=== PATIENT | male | born 1990 | race American Indian/Alaskan Native ===

== ENCOUNTER 2017-11-13 20:16 | Emergency (ER) | payer OTHER ==
[2017-11-13 20:24] VITALS: BP 106/72
--- NOTE | 2017-11-14 03:47 | Emergency Department Report ---
ED Extremity Problem HPI - General Chief complaint: Skin/Abscess/Foreign Body Stated complaint: BOIL ON UNDERARM Time Seen by Provider: 11/14/17 03:37 Source: patient Mode of arrival: Ambulatory Limitations: No Limitations - History of Present Illness MD Complaint: extremity pain, extremity swelling - Related Data Allergies Allergy/AdvReac Type Severity Reaction Status Date / Time No Known Allergies Allergy Unverified 11/13/17 20:24 ED Review of Systems ROS: Stated complaint: BOIL ON UNDERARM Other details as noted in HPI ED Past Medical Hx - Past Medical History Previous Medical History?: No - Surgical History Past Surgical History?: No - Social History Smoking Status: Never Smoker Substance Use Type: None ED Physical Exam - General Limitations: No Limitations ED Course Vital Signs 11/13/17 20:20 Temperature 98.1 F Pulse Rate 56 L Respiratory 18 Rate Blood Pressure 106/72 O2 Sat by Pulse 100 Oximetry Critical care attestation.: If time is entered above; I have spent that time in minutes in the direct care of this critically ill patient, excluding procedure time. ED Disposition Condition: Stable Referrals: PRIMARY CARE [Primary Care Provider] - 3-5 Days
== END 2017-11-13 23:40 | disposition left against medical advice (07) ==
LOC: ED 20:16
DX: L02.421 Furuncle of right axilla (principal); Z53.21 Procedure and treatment not carried out due to patient leaving prior to being seen by health care provider

== ENCOUNTER 2018-10-28 17:55 | Emergency (ER) | payer OTHER ==
[2018-10-28] MEDS ORDERED: SUBLIMAZE ONE ×2 (18:03→18:05)
[2018-10-28] MEDS ORDERED: SUBLIMAZE IV ONE ×3 (18:08→19:35)
[2018-10-28] MEDS ORDERED: AMIDATE IV ONE ×3 (18:31→19:37)
--- NOTE | 2018-10-28 18:43 | XRay Report ---
RIGHT SHOULDER SINGLE VIEW INDICATION / CLINICAL INFORMATION: pain, dislocation. COMPARISON: None available. FINDINGS: Humeral head is displaced inferiorly to the glenoid consistent with anterior dislocation. An obvious fracture is not identified on this single view. Visualized right ribs are intact. IMPRESSION: Anterior dislocation of the glenohumeral joint. Signer Name: Kia Hwang MD Signed: 10/28/2018 6:39 PM Workstation Name: [id number]
[2018-10-28] MEDS ORDERED: NARCAN 2 MG/2 ML ONE (18:49)
--- NOTE | 2018-10-28 18:56 | Emergency Department Report ---
ED Extremity Problem HPI - General Chief complaint: Extremity Injury, Upper Stated complaint: RT ARM/PAIN Time Seen by Provider: 10/28/18 18:06 Source: patient Mode of arrival: Wheelchair Limitations: Physical Limitation - History of Present Illness Initial comments: 78-year-old male with recurrent dislocation of the shoulder. He was doing some sort of tumbling and his shoulder popped out. He states this happens frequently but he is able to pop it back in. He has not followed up with an orthopedist or had any procedure on his shoulder. He states that he ate pizza approximately 6 hours ago. He is not being very cooperative and a poor historian. However, he reports no other injury. MD Complaint: extremity pain -: Sudden Location: right (shoulder) History of Same: Yes Radiation: none Quality: aching Consistency: constant Improves with: nothing Worsens with: nothing Associated Symptoms: denies other symptoms - Related Data Previous Rx's Medication Instructions Recorded Last Taken Type Naproxen [Naprosyn] 500 mg PO Q12H PRN #14 tablet 10/28/18 Unknown Rx Allergies Allergy/AdvReac Type Severity Reaction Status Date / Time No Known Allergies Allergy Unverified 11/13/17 20:24 ED Review of Systems ROS: Stated complaint: RT ARM/PAIN Other details as noted in HPI Comment: All other systems reviewed and negative ED Past Medical Hx - Past Medical History Previous Medical History?: No Additional medical history: Recurrent shoulder dislocation - Surgical History Past Surgical History?: No - Social History Smoking Status: Never Smoker Substance Use Type: None - Medications Home Medications: Home Medications Medication Instructions Recorded Confirmed Last Taken Type Naproxen [Naprosyn] 500 mg PO Q12H PRN #14 tablet 10/28/18 Unknown Rx ED Physical Exam - General Limitations: Physical Limitation General appearance: alert, in no apparent distress - Head Head exam: Present: atraumatic, normocephalic - Eye Eye exam: Present: normal appearance. Absent: scleral icterus - ENT ENT exam: Present: mucous membranes moist - Neck Neck exam: Present: normal inspection - Respiratory Respiratory exam: Present: normal lung sounds bilaterally. Absent: respiratory distress - Cardiovascular Cardiovascular Exam: Present: regular rate, normal rhythm. Absent: systolic murmur, diastolic murmur, rubs, gallop - GI/Abdominal GI/Abdominal exam: Present: soft, normal bowel sounds. Absent: distended, tenderness, guarding, rebound, rigid - Rectal Rectal exam: Present: deferred - Extremities Exam Extremities exam: Present: normal inspection - Back Exam Back exam: Present: normal inspection - Neurological Exam Neurological exam: Present: alert, oriented X3, CN II-XII intact. Absent: motor sensory deficit - Psychiatric Psychiatric exam: Present: agitated, anxious - Skin Skin exam: Present: warm, dry, intact, normal color. Absent: rash ED Course Vital Signs 10/28/18 10/28/18 18:30 19:07 Temperature 98.9 F Temperature [ 98.9 F Pre-Procedure] Pulse Rate 51 L 47 L Pulse Rate [Pre 58 L -Procedure] Respiratory 14 3 L Rate Respiratory 16 Rate [Pre- Procedure] Blood Pressure 121/82 O2 Sat by Pulse 99 Oximetry O2 Sat by Pulse 100 Oximetry [Pre- Procedure] - Reevaluation(s) Reevaluation #1: She has recovered to his baseline. He is appropriate for outpatient disposition. 10/28/18 19:26 - Moderate Sedation Indications: fracture/dislocation redu ASA Class: I Mallampati Airway Score: 1 Preparation: reverberatory furnace supervisor applied, pulse oximeter, capnometry used, supplemental O2 applied, reversal agents at bedside, suction/airway equipment at bedside, IV secured Fentanyl: IV IV Etomidate Dose (mgs): 6 Reversal Agents Used: Naloxone (1 mg) Complications: other Interventions: assist by BVM Patient Tolerated Procedure: well Additional Comments: BVM assist. Patient given a milligram of Narcan. He woke well. He was conscious and alert. He will be observed for complete recovery.. Critical care attestation.: If time is entered above; I have spent that time in minutes in the direct care of this critically ill patient, excluding procedure time. ED Disposition Clinical Impression: Anterior dislocation of right shoulder Qualifiers: Encounter type: initial encounter Qualified Code(s): S43.014A - Anterior dislocation of right humerus, initial encounter Disposition: TO HOME OR SELFCARE Is pt being admited?: No Does the pt Need Aspirin: No Condition: Stable Instructions: Shoulder Dislocation (ED) Additional Instructions: Where shoulder. Avoid excessive stress. Follow-up with orthopedist list. Ibuprofen for pain as needed. Prescriptions: Naproxen [Naprosyn] 500 mg PO Q12H PRN #14 tablet PRN Reason: pain Referrals: ALLY HERRON MD [Staff Physician] - 3-5 Days Time of Disposition: 19:13
[2018-10-28] MEDS ORDERED: NARCAN 0.4 MG/1 ML IV ONE (18:57)
[2018-10-28] MEDS ORDERED: IBUPROFEN PO ONE (19:28)
--- NOTE | 2018-10-28 19:35 | XRay Report ---
Right shoulder, 2 views INDICATION: Postreduction FINDINGS: When compared to the prereduction film there has been successful reduction of the dislocate d right shoulder with the humeral head now in normal position within the glenoid fossa. Signer Name: José Miguel Ball MD Signed: 10/28/2018 7:30 PM Workstation Name: [id number]
[2018-10-28 21:05] VITALS: BP 110/78
== END 2018-10-28 21:07 | disposition home or self-care (01) ==
LOC: ED 17:55
DX: S43.014A Anterior dislocation of right humerus, initial encounter (principal); Z79.899 Other long term (current) drug therapy; W18.39XA Other fall on same level, initial encounter; Y93.89 Activity, other specified; Y92.89 Other specified places as the place of occurrence of the external cause; Y99.8 Other external cause status
CPT/HCPCS: 23650; 73020; 73030; 99285; J2310; J3010; 96374; 96376

== ENCOUNTER 2019-01-13 06:26 | Emergency (ER) | payer SELFPAY ==
[2019-01-13] MEDS ORDERED: ETOMIDATE 20 MG/10 ML INJ IV ONE ×2 (07:16→07:37)
--- NOTE | 2019-01-13 07:19 | Emergency Department Report ---
HPI - General Chief Complaint: Shoulder Injury Time Seen by Provider: 01/13/19 07:11 - HPI HPI: Room 18 The patient is a 28-year-old male presented with a chief complaint of right shoulder pain. Patient has a history of multiple dislocations of the right shoulder. The patient states he awakened this morning with pain in the right shoulder secondary to dislocation. Patient denies any preceding trauma. ED Past Medical Hx - Past Medical History Previous Medical History?: Yes Additional medical history: Recurrent shoulder dislocation - Surgical History Past Surgical History?: No - Family History Family history: no significant - Social History Smoking Status: Never Smoker Substance Use Type: None (denies illicit drug use), Alcohol (rarely) - Medications Home Medications: Home Medications Medication Instructions Recorded Confirmed Last Taken Type Naproxen [Naprosyn] 500 mg PO Q12H PRN #14 tablet 10/28/18 Unknown Rx HYDROcodone/APAP 5-325 [[place] 1 - 2 each PO Q6HR PRN #14 tablet 01/13/19 Unknown Rx 5/325] Ibuprofen [Motrin 800 MG tab] 800 mg PO Q8HR PRN #20 tablet 01/13/19 Unknown Rx ED Review of Systems ROS: Stated complaint: RT DISLOCATED SHOULDER Other details as noted in HPI Constitutional: no symptoms reported Eyes: denies: eye pain ENT: denies: throat pain Respiratory: no symptoms reported Cardiovascular: denies: chest pain Endocrine: no symptoms reported Gastrointestinal: denies: abdominal pain Genitourinary: denies: dysuria Musculoskeletal: arthralgia Neurological: denies: headache Physical Exam - Physical Exam Vital Signs: Vital Signs 01/13/19 06:50 Temperature 98.6 F Pulse Rate 54 L Respiratory 20 Rate Blood Pressure 119/83 [Left] O2 Sat by Pulse 98 Oximetry Physical Exam: GENERAL: The patient is well-developed well-nourished male lying on stretcher with right upper extremity abducted. [] HEENT: Normocephalic. Atraumatic. Extraocular motions are intact. Patient has moist mucous membranes. NECK: Supple. Trachea midline CHEST/LUNGS: There is no respiratory distress noted. HEART/CARDIOVASCULAR: Regular. There is no tachycardia. 2+ right radial pulse ABDOMEN: There is no abdominal distention. SKIN: There is no rash. There is no edema. There is no diaphoresis. NEURO: The patient is awake, alert, and oriented. The patient is cooperative. The patient has no focal neurologic deficits. The patient has normal speech MUSCULOSKELETAL: The right upper extremity is held in abduction secondary to dislocation at the shoulder ED Course Vital Signs 01/13/19 06:50 Temperature 98.6 F Pulse Rate 54 L Respiratory 20 Rate Blood Pressure 119/83 [Left] O2 Sat by Pulse 98 Oximetry - Moderate Sedation ASA Class: I Mallampati Airway Score: 1 Preparation: manufacturing weaver applied, pulse oximeter, supplemental O2 applied, suction/airway equipment at bedside, IV secured IV Etomidate Dose (mgs): 12 Complications: none Patient Tolerated Procedure: no complications - Orthopedic Joint Reduction Joint #1 Consent Obtained: verbal consent Time Out Performed: Yes Side: right Joint Reduction Location: shoulder Analgesia: moderate sedation Shoulder Technique Used (if applicable): traction/counter-traction Technique Used: traction/counter-traction Post-Reduction Neuro Exam: intact Post-Reduction Vascular Exam: intact Post Reduction X-Ray Obtained: Yes Post Reduction X-Ray Results: reduced Splint Applied: Yes Patient Tolerated Procedure: well ED Medical Decision Making - Radiology Data Radiology results: report reviewed (x-ray #1), image reviewed (shoulder x-ray #1, shoulder x-ray #2) interpreted by me: Shoulder x-ray #1-dislocation X-ray #2 (post reduction)-anatomic. No fractures, no dislocation [address] [address] XRay Report Signed Patient: SANTIAGO KRAUS MR #: [id number] : 1990 Acct:[id number] Age/Sex: 28 / M ADM Date: 01/13/19 Loc: ED Attending Dr: Ordering Physician: JULIA CARSON MD Date of Service: 01/13/19 Procedure(s): XR shoulder 1V RT Accession Number(s): [id number] cc: JULIA CARSON MD Fluoro Time In Minutes: XR RIGHT SHOULDER ONE VIEW INDICATION / CLINICAL INFORMATION: shoulder dislocation COMPARISON: Right shoulder radiographs 10/28/2018 FINDINGS: BONES / JOINT(S): Evaluation is slightly suboptimal with only one view. The glenohumeral joint appears appropriately aligned on this view. There is suggestion of a probable Hill-Sachs deformity of the humeral head. SOFT TISSUES: No significant abnormality. ADDITIONAL FINDINGS: None. Signer Name: Stacy Allen MD Signed: 01/13/2019 7:53 AM Workstation Name: [id number] Transcribed By: C Dictated By: Stacy Allen MD Electronically Authenticated By: Stacy Allen MD Signed Date/Time: 01/13/19 0753 DD/ 0748 TD/TT: - Differential Diagnosis shoulder dislocation Critical care attestation.: If time is entered above; I have spent that time in minutes in the direct care of this critically ill patient, excluding procedure time. ED Disposition Clinical Impression: Recurrent dislocation, right shoulder Disposition: DC-01 TO HOME OR SELFCARE Is pt being admited?: No Does the pt Need Aspirin: No Condition: Stable Instructions: Shoulder Dislocation (ED) Prescriptions: Ibuprofen [Motrin 800 MG tab] 800 mg PO Q8HR PRN #20 tablet PRN Reason: Pain, Moderate (4-6) HYDROcodone/APAP 5-325 [[place] 5/325] 1 - 2 each PO Q6HR PRN #14 tablet PRN Reason: Pain Referrals: ALLY BLANCHARD MD [Staff Physician] - [place] (Dr. Blanchard is an orthopedic surgeon. Please follow up with him for further evaluation) Time of Disposition: 08:26
--- NOTE | 2019-01-13 07:57 | XRay Report ---
XR RIGHT SHOULDER ONE VIEW INDICATION / CLINICAL INFORMATION: shoulder dislocation COMPARISON: Right shoulder radiographs 10/28/2018 FINDINGS: BONES / JOINT(S): Evaluation is slightly suboptimal with only one view. The glenohumeral joint appear s appropriately aligned on this view. There is suggestion of a probable Hill-Sachs deformity of the h umeral head. SOFT TISSUES: No significant abnormality. ADDITIONAL FINDINGS: None. Signer Name: Stacy Allen MD Signed: 01/13/2019 7:53 AM Workstation Name: [id number]
--- NOTE | 2019-01-13 08:46 | XRay Report ---
RIGHT SHOULDER 1 VIEW(S) INDICATION / CLINICAL INFORMATION: s/p reduction COMPARISON: This study at 8:02 AM was compared to earlier study at 7:21 AM same day. FINDINGS: BONES / JOINT(S): No acute fracture or subluxation. No significant arthritis. SOFT TISSUES: No significant abnormality. ADDITIONAL FINDINGS: None. Signer Name: Pito Leonard MD Signed: 01/13/2019 8:42 AM Workstation Name: [id number]
[2019-01-13 08:49] VITALS: BP 102/66
== END 2019-01-13 09:10 | disposition home or self-care (01) ==
LOC: ED 06:26
DX: M24.411 Recurrent dislocation, right shoulder (principal)
CPT/HCPCS: 96374

== ENCOUNTER 2019-05-30 12:07 | Emergency (ER) | payer SELFPAY ==
--- NOTE | 2019-05-30 12:13 | Emergency Department Report ---
{null, Blank Doc - Documentation Documentation: 28-year-old male that presents with right shoulder pain w/ possible dislocation s/p fall. This initial assessment/diagnostic orders/clinical plan/treatment(s) is/are subject to change based on patient's health status, clinical progression and re- assessment by fellow clinical providers in the ED. Further treatment and workup at subsequent clinical providers discretion. Patient/guardians urged not to elope from the ED as their condition may be serious if not clinically assessed and managed. Initial orders include: 1- Patient sent to MAIN ED for further evaluation and treatment 2- xrays }
[2019-05-30] MEDS ORDERED: propofoL 200 MG/20 ML VIAL IV ONE (12:33)
[2019-05-30] MEDS ORDERED: fentaNYL 100 MCG/2 ML INJ IV ONE (12:34)
--- NOTE | 2019-05-30 13:07 | XRay Report ---
{null, RIGHT SHOULDER 2 VIEWS INDICATION: shoulder pain. COMPARISON: 01/13/2019 FINDINGS: There is anterior/inferior subluxation of the humeral head with respect to the glenoid. No fracture i s seen. AC joint is unremarkable. IMPRESSION: 1. Positioning is suboptimal; there appears to be anterior inferior subluxation of the humeral head w ith respect to the glenoid. Signer Name: Iain Jacobo MD Signed: 05/30/2019 1:03 PM Workstation Name: [id number] }
--- NOTE | 2019-05-30 13:15 | Emergency Department Report ---
{null, ED General Adult HPI - General Chief complaint: Shoulder Injury Stated complaint: POSS RT SHOULDER DISLOC Time Seen by Provider: 05/30/19 12:14 Source: patient Mode of arrival: Wheelchair Limitations: No Limitations - History of Present Illness Initial comments: This is a 28-year-old male who states he has had 4-5 dislocations of his right shoulder in the past. He states that he is unable to get it fixed due to a lack of insurance. He states that he slipped and dislocated his right shoulder which is quite painful. He was here in January 2019 for shoulder dislocation. He states that his right trapezius area is sore but not his actual neck. He did not hit his head. He denies other pain or injury. Last meal was last night. No prior problems with sedation or anesthesia. -: Sudden Location: right, upper extremity (Shoulder) Radiation: non-radiation Quality: aching Consistency: constant Improves with: none Worsens with: movement Associated Symptoms: denies other symptoms - Related Data Previous Rx's Medication Instructions Recorded Last Taken Type Naproxen [Naprosyn] 500 mg PO Q12H PRN #14 tablet 10/28/18 Unknown Rx HYDROcodone/APAP 5-325 [[place] 1 - 2 each PO Q6HR PRN #14 tablet 01/13/19 Unknown Rx 5/325] Ibuprofen [Motrin 800 MG tab] 800 mg PO Q8HR PRN #20 tablet 01/13/19 Unknown Rx HYDROcodone/APAP 5-325 [[place] 1 each PO Q6HR PRN #7 tablet 05/30/19 Unknown Rx 5/325] Allergies Allergy/AdvReac Type Severity Reaction Status Date / Time No Known Allergies Allergy Unverified 11/13/17 20:24 ED Review of Systems ROS: Stated complaint: POSS RT SHOULDER DISLOC Other details as noted in HPI Comment: All other systems reviewed and negative ED Past Medical Hx - Past Medical History Previous Medical History?: Yes Additional medical history: Recurrent shoulder dislocation - Surgical History Past Surgical History?: No - Social History Smoking Status: Never Smoker Substance Use Type: Alcohol - Medications Home Medications: Home Medications Medication Instructions Recorded Confirmed Last Taken Type Naproxen [Naprosyn] 500 mg PO Q12H PRN #14 tablet 10/28/18 Unknown Rx HYDROcodone/APAP 5-325 [[place] 1 - 2 each PO Q6HR PRN #14 tablet 01/13/19 Unknown Rx 5/325] Ibuprofen [Motrin 800 MG tab] 800 mg PO Q8HR PRN #20 tablet 01/13/19 Unknown Rx HYDROcodone/APAP 5-325 [[place] 1 each PO Q6HR PRN #7 tablet 05/30/19 Unknown Rx 5/325] ED Physical Exam - General Limitations: No Limitations ED Course Vital Signs 05/30/19 05/30/19 05/30/19 12:13 12:43 13:16 Temperature 97.6 F Pulse Rate 64 Pulse Rate [ 61 Post-Procedure] Pulse Rate [Pre 67 -Procedure] Respiratory 20 20 Rate Respiratory 7 L Rate [Post- Procedure] Respiratory 16 Rate [Pre- Procedure] Blood Pressure 108/71 Blood Pressure 126/73 [Post-Procedure ] Blood Pressure 123/80 [Pre-Procedure] Blood Pressure [Right] O2 Sat by Pulse 98 Oximetry O2 Sat by Pulse 98 Oximetry [Post -Procedure] O2 Sat by Pulse 98 Oximetry [Pre- Procedure] 05/30/19 05/30/19 13:36 13:55 Temperature Pulse Rate 65 56 L Pulse Rate [ Post-Procedure] Pulse Rate [Pre -Procedure] Respiratory 10 L 16 Rate Respiratory Rate [Post- Procedure] Respiratory Rate [Pre- Procedure] Blood Pressure Blood Pressure [Post-Procedure ] Blood Pressure [Pre-Procedure] Blood Pressure 120/73 [Right] O2 Sat by Pulse 100 Oximetry O2 Sat by Pulse Oximetry [Post -Procedure] O2 Sat by Pulse Oximetry [Pre- Procedure] - Moderate Sedation Indications: fracture/dislocation redu ASA Class: I Mallampati Airway Score: 1 Preparation: import/export specialist applied, pulse oximeter, capnometry used, supplemental O2 applied, reversal agents at bedside, suction/airway equipment at bedside, IV secured Fentanyl: IV IV Propofol Dose (mgs): 120 (Titrated) Complications: none Interventions: oxygen applied Patient Tolerated Procedure: well (Patient did require quite a bit of propofol to achieve reduction. He did not require Ambu bag assist.) - Orthopedic Joint Reduction Joint #1 Consent Obtained: verbal consent Time Out Performed: No Side: right Joint Reduction Location: shoulder Analgesia: moderate sedation Shoulder Technique Used (if applicable): other (Modified Lucho Technique) Post-Reduction Neuro Exam: intact Post-Reduction Vascular Exam: intact Post Reduction X-Ray Obtained: Yes Post Reduction X-Ray Results: reduced Splint Applied: Yes Patient Tolerated Procedure: well ED Medical Decision Making - Radiology Data Radiology results: image reviewed Critical care attestation.: If time is entered above; I have spent that time in minutes in the direct care of this critically ill patient, excluding procedure time. ED Disposition Clinical Impression: Recurrent dislocation, right shoulder Disposition: DC-01 TO HOME OR SELFCARE Is pt being admited?: No Does the pt Need Aspirin: No Condition: Stable Instructions: Shoulder Dislocation (ED) Additional Instructions: Aurb-pav-[id number] medications for pain such as Motrin are recommended. Follow-up with orthopedic physician. Prescriptions: HYDROcodone/APAP 5-325 [[place] 5/325] 1 each PO Q6HR PRN #7 tablet PRN Reason: Pain Referrals: ALLY HERRON MD [Staff Physician] - 3-5 Days Time of Disposition: 14:15 }
--- NOTE | 2019-05-30 13:43 | XRay Report ---
{null, HISTORY:post reduction COMPARISON: None. TECHNIQUE: AP and Y view were obtained FINDINGS: Bones: No fracture or dislocation. Joint spaces: The anterior dislocation has been reduced. Soft tissues: No significant abnormality. Additional findings: None. IMPRESSION: 1. Reduction of anterior dislocation of the humerus in relation to glenoid fossa Signer Name: Khai Amin MD Signed: 05/30/2019 1:39 PM Workstation Name: [id number] }
[2019-05-30 14:34] VITALS: BP 138/74
== END 2019-05-30 14:35 | disposition home or self-care (01) ==
LOC: ED 12:07
DX: S43.004A Unspecified dislocation of right shoulder joint, initial encounter (principal); Z79.899 Other long term (current) drug therapy; W01.0XXA Fall on same level from slipping, tripping and stumbling without subsequent striking against object, initial encounter; Y93.89 Activity, other specified; Y92.89 Other specified places as the place of occurrence of the external cause; Y99.8 Other external cause status
CPT/HCPCS: 23650; 73030; 96374; 99284; J2704; J3010